=== PATIENT | female | born 1970 | race Caucasian/White ===

== ENCOUNTER 2017-11-02 15:40 | Observation (INO) ==
[2017-11-02] MEDS ORDERED: SALINE FLUSH 10ml SYRINGE IVF PRN (16:13)
--- NOTE | 2017-11-02 16:47 | Emergency Department Report ---
Seizure HPI - General Chief Complaint: Seizure Stated Complaint: POSSIBLE SEIZURE Source: patient Mode of arrival: EMS Limitations: no limitations - History of Present Illness HPI Narrative: PT presents per EMS after having 2 approximately 1 minute seizures while at work today. PT has a known seizure disorder and has been doing fairly well until she had a seizure yesterday and then again today. Pt was diagnosed with bronchitis about 4 days ago and placed on antibiotics. She reports she is continuing to have fevers and a productive cough despite the antibiotics. EMS witnessed second seizure and gave pt a dose of Ativan. They also reported a post ictal phase. MD complaint: seizure Onset (ago): minute(s) Description of Episode: loss of consciousness Duration of episode: 1 Witnessed: yes - by EMS, yes - by other Seizure History: known seizure disorder Place: work Possible Precipitating Event: fever Associated symptoms: cough, fever/chills Treatments prior to arrival: benzodiazepines - Related Data Home Medications Medication Instructions Recorded Confirmed HydrOXYzine [Atarax] 25 mg PO DAILY #0 12/23/15 11/02/17 Citalopram [Celexa] 30 mg PO DAILY 11/02/17 11/02/17 Levetiracetam [Keppra] 500 mg PO BID 11/02/17 11/02/17 Multivitamin [One Daily] 1 each PO DAILY 11/02/17 11/02/17 Naproxen Sodium [Aleve] 220 mg PO BID 11/02/17 11/02/17 diphenhydrAMINE HCl [Benadryl] 25 mg PO HS 11/02/17 11/02/17 Allergies Allergy/AdvReac Type Severity Reaction Status Date / Time aspirin Allergy Severe Tinnitus Verified 11/02/17 16:06 buspirone Allergy Unknown Verified 11/02/17 16:06 mirtazapine AdvReac Unknown Verified 11/02/17 16:06 Review of Systems All systems: reviewed and negative except as stated Constitutional: Reports: as per HPI Respiratory: Reports: as per HPI Neurological: Reports: as per HPI PFSH Patient Stated Medical History Seizures Yes Bronchitis Yes: "CHRONIC" Depression Yes Clinic Medical History (Last Updated 01/12/17 @ 13:03 by GARRY Dalton) Anxiety (Acute Medical) Depression (Acute Medical) Seizure (Acute Medical) Surgical History: *TUBAL LIGATION. *PLATE AND SCREWS ON RIGHT HEEL - Social History Smoking status: Current every day smoker second hand exposure: Yes Substance use type: does not use Alcohol intake frequency: does not drink Physical Exam - Limitations Limitations: no limitations - General General appearance: alert, in no apparent distress - Normal Exams: Head:: Normocephalic without trauma Cardiovascular:: Regular rate and rhythm, without murmur or gallop, Pulses 2+ all extremities, capillary refill, <2 seconds all extremities Abdomen:: Bowel sounds positive, soft, non-tender, non-distended Musculoskeletal:: No tenderness, or deformity noted, good range of motion, all extremities Integumentary:: No rashes Neurological:: Patient is alert, and oriented, cranial nerves, motor/sensory/ cerebellar, exams w/o gross deficits, to observation Psychiatric:: Patient exhibits, appropriate attention, emotion and affect - Expanded Respiratory Exam Location: Left: decreased breath sounds, Right: decreased breath sounds, Lower: decreased breath sounds Course Vital Signs Temperature 98.6 F 11/02/17 15:35 Pulse Rate 93 11/02/17 15:35 Respiratory Rate 16 11/02/17 15:35 Blood Pressure 108/60 11/02/17 15:35 Pulse Oximetry 96 11/02/17 15:35 Temperature 98.6 F 11/02/17 15:35 Pulse Rate 93 11/02/17 15:35 Respiratory Rate 16 11/02/17 15:35 Blood Pressure 108/60 11/02/17 15:35 Pulse Oximetry 96 11/02/17 15:35 Seizure - MDM Narrative Medical decision making narrative: WBC elevated with questionable opacity to RLL per Dr Berry on CXR. Verified pt is currently taking Clindamycin. Discussed pt complaint, history and findings with Hospitalist who will admit observation 2/2 increase in seizure frequency with underlying stressors. Pt agrees to plan as pt is resting. reports multiple supports and monitoring for continued home care once pt is dismissed. - Differential Diagnosis Likely: febrile convulsion (pneumonia, bronchitis), generalized seizure, epileptic seizure - Lab Data Attestation: I reviewed the patient's lab results. Result diagrams: 11/02/17 15:46 11/02/17 15:46 Lab Results 11/02/17 11/02/17 Range/Units 15:46 15:46 WBC 13.6 H (4.5-11.0) T/MM3 RBC 4.72 (4.00-5.20) M/MM3 Hgb 13.3 (12-16) GM/DL Hct 40.0 (36-46) % MCV 84.7 (80-100) UM3 MCH 28.2 (26-34) UUG MCHC 33.3 (31-37) GM/DL RDW Std Deviation 44.9 (36.9-50.2) FL Plt Count 338 (130-400) T/MM3 MPV 10.5 (9.4-12.4) UM3 Immature Gran % (Auto) 0.5 (0.0-0.5) % Neut % (Auto) 67.5 H (33-66) % Lymph % (Auto) 23.1 (23-45) % [place] % (Auto) 6.4 (0-9.0) % Eos % (Auto) 2.1 (0-4) % Baso % (Auto) 0.4 (0-2) % Neut # (Auto) 9.2 H (1.8-7.7) T/MM3 Lymph # (Auto) 3.1 (1-4.8) T/MM3 [place] # (Auto) 0.9 H (0-0.8) T/MM3 Eos # (Auto) 0.3 (0-0.5) T/MM3 Baso # (Auto) 0.1 (0-0.2) T/MM3 Abs Immat Gran (auto) 0.07 H (0.00-0.03) T/MM3 Turbidity < 20 (0-20) Sodium 144 (136-146) MEQ/L Potassium 3.8 (3.6-5) MEQ/L Chloride 110 H (98-107) MEQ/L Carbon Dioxide 21 L (22-30) MEQ/L Anion Gap 13 (5-15) meq/L BUN 23.0 H (7-17) MG/DL Creatinine 0.9 (0.7-1.2) mg/dL GFR Calculation 67 BUN/Creatinine Ratio 26 (6-26) RATIO Glucose 106 (65-110) MG/DL Calculated Osmolality 281 H (261-280) MOSM/KG Calcium 9.6 (8.4-10.2) MG/DL Total Bilirubin 0.40 (0.20-1.30) MG/DL Icterus Index < 2 (0-7) AST 32 (14-36) U/L ALT 31 (1-35) U/L Alkaline Phosphatase 96 (38-126) U/L Total Protein 7.9 (6.3-8.2) g/dL Albumin 4.5 (3.5-5.0) g/dL Globulin 3.4 (2.4-3.6) G/DL Albumin/Globulin Ratio 1.3 (1.1-2.2) RATIO Specimen Hemolysis < 15 (0-25) - Radiology Data [facility] Radiology Attestation Statement: I reviewed the patient's radiology results. (read per Dr Berry) Disposition Clinical Impression: Bronchitis Epileptic seizure Qualifiers: Epilepsy type: unspecified Intractability: not intractable Status epilepticus: without status epilepticus Qualified Code(s): G40.909 - Epilepsy, unspecified, not intractable, without status epilepticus Disposition: 02 To OBS [facility] Condition: Improved Prescriptions: No Action diphenhydrAMINE HCl [Benadryl] 25 mg PO HS Levetiracetam [Keppra] 500 mg PO BID Citalopram [Celexa] 30 mg PO DAILY Multivitamin [One Daily] 1 each PO DAILY HydrOXYzine [Atarax] 25 mg PO DAILY #0 Naproxen Sodium [Aleve] 220 mg PO BID Referrals: Elana Alvarado APRN [Primary Care Provider] - Time of Disposition: 17:22 - Seen By: midlevel
[2017-11-02] MEDS ORDERED: ACETAMINOPHEN 650 MG SUPPOSITORY PR PRN (18:47)
[2017-11-02] MEDS ORDERED: ACETAMINOPHEN 325 MG TABLET PO PRN (18:47)
[2017-11-02 18:50] VITALS: BMI 25.9
--- NOTE | 2017-11-02 19:40 | History & Physical Report ---
History of Present Illness Date: 11/03/17 Chief complaint: seizures HPI: 47-year-old woman with known history seizure disorder had a single episode the day prior and then 2 today with one witnessed by medical services. She has had several days of bronchitis type presentation cough with chills and malaise. She had been placed on clindamycin on an outpatient basis by her primary care physician but has yet to feels significantly better while on this medicine. She does attest to some postictal malaise and minor disorientation Review of Systems - Constitutional Constitutional: Present: as per HPI - EENMT Eyes: Absent: blurry vision, change in vision Mouth/Throat: Absent: pain, sore throat, changes in swallowing - Cardiovascular Cardiovascular: Absent: chest pain, palpitations, orthopnea - Respiratory Respiratory: Present: cough, chest congestion - Gastrointestinal Gastrointestinal: Absent: abdominal pain, change in bowel habits - Musculoskeletal Musculoskeletal: Absent: joint swelling, neck pain - Neurological Neurological: Absent: abnormal gait, abnormal movements Past Medical History Medical History: Medical History (Last Updated 01/12/17 @ 13:03 by GARRY Dalton) Anxiety Depression Seizure Surgical History: *TUBAL LIGATION. *PLATE AND SCREWS ON RIGHT HEEL Family History: No Significant Family History - Social History Smoking status: Current every day smoker Substance use type: does not use Alcohol intake frequency: does not drink Medications Home Medications Medication Instructions Recorded Confirmed Type HydrOXYzine [Atarax] 25 mg PO DAILY #0 12/23/15 11/02/17 History Citalopram [Celexa] 30 mg PO DAILY 11/02/17 11/02/17 History Clindamycin [Cleocin] 150 mg PO QID 11/02/17 11/02/17 History Levetiracetam [Keppra] 500 mg PO BID 11/02/17 11/02/17 History Multivitamin [One Daily] 1 each PO DAILY 11/02/17 11/02/17 History Naproxen Sodium [Aleve] 220 mg PO BID 11/02/17 11/02/17 History diphenhydrAMINE HCl [Benadryl] 25 mg PO HS 11/02/17 11/02/17 History Allergies Allergy/AdvReac Type Severity Reaction Status Date / Time aspirin Allergy Severe Tinnitus Verified 11/02/17 16:06 buspirone Allergy Unknown Verified 11/02/17 16:06 mirtazapine AdvReac Unknown Verified 11/02/17 16:06 Exam Vital Signs: Temperature 97.4 F 11/02/17 18:52 Pulse Rate 76 11/02/17 18:52 Respiratory Rate 18 11/02/17 18:52 Blood Pressure 109/67 11/02/17 18:52 Pulse Oximetry 95 11/02/17 18:52 Height/Weight/BMI: Height 5 ft 6.5 in Weight 74.1 kg Body Mass Index 25.9 - Constitutional Present: well nourished, well developed - Routine HEENT Exam Eye: Present: EOMI ENT: Present: mucous membranes moist, dentition normal - Routine Respiratory Exam Present: CTA bilaterally, rhonchi - Routine Cardiovascular Exam Present: RRR. Absent: murmur - Routine Abdominal Exam Present: soft, normoactive bowel sounds, non distended. Absent: tenderness - Routine Extremities Exam Present: normal capillary refill - Routine Skin Exam Present: dry, warm - Routine Neurological Exam Present: alert, oriented X3, CN II-XII intact - Routine Psychiatric Exam Present: normal affect Results - Labs CBC & Chem 7: 11/02/17 15:46 11/02/17 15:46 Microbiology Results: Microbiology 11/02/17 16:53 Peripheral/Iv Start Blood Culture - Preliminary Culture Initiated - Results Pending 11/02/17 16:47 Peripheral/Iv Start Blood Culture - Preliminary Culture Initiated - Results Pending - Imaging and Cardiology Chest x-ray Status: image reviewed by me Additional comments: No significant appreciable infiltrate Assessment and Plan (1) Epileptic seizure Current visit: Yes Status: Acute (2) Bronchitis Current visit: Yes Status: Acute Assessment and Plan: Case was discussed with the patient and her present she was rather intent on returning to home but her was able to convince her into staying. Although the patient claims to have not missed any doses. She is already on the loading dose of Keppra. As well as dose of Ativan. Patient will be put on the floor with telemetry and seizure precautions. Will continue her on her home medication of clindamycin. For the bronchitis. A be wrong nebulizers may be started if patient appears to develop need. Disinclined to use any DVT prophylaxis due to high likelihood of seizure activity with potential for injury DISPOSITION: observation status - Physician Narrative Narrative: Date: 11/02/17 Time: 1939 Hospital Course Summary Disclaimer: The visit summary below is not to be considered part of the above Progress Note.
[2017-11-02] MEDS ORDERED: DiphenhydrAMINE 25 MG CAPSULE PO SCH (21:00)
[2017-11-02] MEDS: CLINDAMYCIN 150 MG CAPSULE PO SCH (22:52)
[2017-11-02] MEDS: LEVETIRACETAM 500 MG TABLET PO SCH (22:53)
[2017-11-02] MEDS: NAPROXEN 220 MG TABLET PO SCH (22:55)
[2017-11-02] MEDS: LR 1,000 ML IV SCH (23:43)
--- NOTE | 2017-11-03 07:21 | XRay Report ---
Indication: cough, fever XR chest 1V: Comparison: 09/29/2008 Technique: Single portable upright chest Findings: Patient shows normal heart, mediastinum and central vascularity. Lungs are clear. No acute bony findings noted. Impression: Unremarkable single view chest. .
[2017-11-03] MEDS: NAPROXEN 220 MG TABLET PO SCH (08:14)
[2017-11-03] MEDS: LEVETIRACETAM 500 MG TABLET PO SCH (08:15)
[2017-11-03] MEDS: CLINDAMYCIN 150 MG CAPSULE PO SCH (08:15)
[2017-11-03 08:23] VITALS: BP 104/82; PULSE 74; RESP 18; TEMP 97.5; O2SAT 96
[2017-11-03] MEDS ORDERED: CITALOPRAM 20 MG TABLET PO SCH (09:00)
[2017-11-03] MEDS: LR 1,000 ML IV SCH (09:51)
--- NOTE | 2017-11-03 11:49 | Discharge Summary ---
Discharge Information Date of admission: 11/02/17 18:18 Anticipated date of discharge: 11/03/17 Attending Physician: Mono Reinoso MD Primary care physician: Elana Alvarado APRN - Discharge Diagnosis (1) Epileptic seizure Status: Acute (2) Bronchitis Status: Acute - Laboratory Labs: 11/02/17 15:46 11/02/17 15:46 - Microbiology Microbiology 11/02/17 16:53 Peripheral/Iv Start Blood Culture - Preliminary Culture Initiated - Results Pending 11/02/17 16:47 Peripheral/Iv Start Blood Culture - Preliminary Culture Initiated - Results Pending History of Present Illness HPI: 47-year-old woman with known history seizure disorder had a single episode the day prior and then 2 today with one witnessed by medical services. She has had several days of bronchitis type presentation cough with chills and malaise. She had been placed on clindamycin on an outpatient basis by her primary care physician but has yet to feels significantly better while on this medicine. She does attest to some postictal malaise and minor disorientation Objective Vital signs: Temperature 97.5 F 11/03/17 08:22 Pulse Rate 74 11/03/17 08:22 Respiratory Rate 18 11/03/17 08:22 Blood Pressure 104/82 11/03/17 08:22 Pulse Oximetry 96 11/03/17 08:22 Height/Weight/BMI: Height 5 ft 6.5 in Weight 78.2 kg Body Mass Index 25.9 - Constitutional Present: well nourished, well developed - Routine HEENT Exam Eye: Present: EOMI ENT: Present: mucous membranes moist, dentition normal - Routine Respiratory Exam Present: CTA bilaterally. Absent: wheezes - Routine Cardiovascular Exam Present: RRR. Absent: murmur - Routine Abdominal Exam Present: soft, normoactive bowel sounds, non distended. Absent: tenderness - Routine Extremities Exam Present: normal capillary refill - Routine Skin Exam Present: dry, warm - Routine Neurological Exam Present: alert, oriented X3, CN II-XII intact - Routine Lymphatic Exam Lymphatic: Absent: adenopathy - Routine Psychiatric Exam Present: normal affect Hospital Course This is a general summary of the patient's hospital course. For more details refer to the complete medical record. Hospital course: This 47-year-old woman who has a long-standing history of epilepsy which is normally fairly well-controlled but has breakthrough seizures with stressors and other metabolic strains. She had to seizures prior to arrival to the hospital and one was witnessed by medical personnel. Neither the seizures lasted for more than a few minutes. She is does not have history of status epilepticus. She was moderately groggy in the ER and wanted to return home to her bed however was expressing additional concerns as she has been recently battling bronchitis and has been on oral amoxicillin (initially reported his clindamycin). For this reason he urged her to stay in observation overnight. This was uneventful and she had no further seizure activity. She was able to somehow sleep through the course of the evening despite all of the processes of vitals and lab work performed. She is able to discharge at this time, however she states that she still feels rather tired and would like a work note for the next few days. I've written for this. She is to follow-up with primary care is needed but this does not appear required at this time Time spent with patient: 25 - 35 minutes Discharge Plan - Discharge Disposition Disposition: Discharged Home, Self-Care *Condition: Improved Reason For Visit (Visit label in EMR): seizures - Discharge Medications *Discharge Medications: New Amoxicillin/Potassium Clav [Augmentin 500-125 Tablet] 1 each PO BID #14 tab Continue diphenhydrAMINE HCl [Benadryl] 25 mg PO HS Levetiracetam [Keppra] 500 mg PO BID Citalopram [Celexa] 30 mg PO DAILY Multivitamin [One Daily] 1 each PO DAILY HydrOXYzine [Atarax] 25 mg PO DAILY #0 Naproxen Sodium [Aleve] 220 mg PO BID Discontinued Clindamycin [Cleocin] 150 mg PO QID - Discharge Packet/Instructions *Diet: Regular diet *Activity: As prior with precautions for seizures as prior *Pain Management/Treatment: [id number] medications is required *Wound Care: None *Expected Signs/Symptoms: Improving symptoms of bronchitis *Notify Physician if: Seizure frequency increases *During Business Hours Contact: Primary care *After Business Hours Contact: Emergency room *Pending Lab/Results: No Pending Lab - Referrals/Follow Up - Patient Handouts - Dismissal Complete Discharge Instructions are:: Complete Physician Narrative - Narrative Attestation Narrative: Date: 11/03/17 Time: [id number]
--- NOTE | 2017-11-03 11:51 | Work/School Release ---
Work/School Release - Date Date: 11/03/17 - Work Release Remain off work/school for:: Through November 05 Excused for:: Job-related activities of nursing May return to work on:: , 11/06/2017 Restrictions:: None on returning to work, except driving status as person with epilepsy May resume normal activity on:: 11/06/17
== END 2017-11-03 12:50 | disposition home or self-care (01) ==
LOC: EDHOLD 15:40 → ED 15:40 → MED 18:44
PROVIDERS: ADMIT Family Medicine; ATTEND Family Medicine